=== PATIENT | female | born 1965 | race Caucasian/White ===

== ENCOUNTER → 2016-06-12 | Outpatient (CLI) | payer BC, OTHER | LOC: OPSV 14:57 | DX: G35 Multiple sclerosis (principal); Z88.8 Allergy status to other drugs, medicaments and biological substances | CPT/HCPCS: 96365; J2323; J7050; Q0163 ==

== ENCOUNTER → 2016-07-10 | Outpatient (CLI) | payer BC, OTHER ==
[~2016-07-10] VITALS: Ht 160 cm; Wt 63.5 kg
== END ==
LOC: OPSV 14:29
DX: G35 Multiple sclerosis (principal)
CPT/HCPCS: 96365; J2323; J7050; Q0163

== ENCOUNTER → 2016-07-24 | Outpatient (CLI) | payer BC | LOC: MRI 09:00 | DX: G35 Multiple sclerosis (principal); R90.89 Other abnormal findings on diagnostic imaging of central nervous system | CPT/HCPCS: 70551 ==

== ENCOUNTER → 2016-08-07 | Outpatient (CLI) | payer BC, OTHER ==
[~2016-08-07] VITALS: Ht 160 cm; Wt 63.5 kg
== END ==
LOC: OPSV 15:55
DX: G35 Multiple sclerosis (principal)
CPT/HCPCS: 96365; J2323; J7050; Q0163

== ENCOUNTER → 2016-09-06 | Outpatient (CLI) | payer BC ==
[~2016-09-06] VITALS: Ht 160 cm; Wt 63.5 kg
== END ==
LOC: OPSV 09-04 16:00
DX: G35 Multiple sclerosis (principal)
CPT/HCPCS: 96365; J2323; J7050; Q0163

== ENCOUNTER → 2020-05-12 | Outpatient (CLI) | payer BC ==
[~2020-05-12] VITALS: Ht 160 cm; Wt 63.5 kg
== END ==
LOC: OPSV 07:00
DX: G35 Multiple sclerosis (principal); E87.6 Hypokalemia
CPT/HCPCS: 36415; 84132; 96365; 96375; J2323; J2930

== ENCOUNTER → 2020-06-09 | Outpatient (CLI) | payer BC ==
[~2020-06-09] VITALS: Ht 160 cm; Wt 63.5 kg
[2020-06-09 13:36] LABS: HEMOGLOBIN 12.9 gm/dl (12.3-15.3); RED BLOOD COUNT 4.9 M/UL (4.00-5.10); WHITE BLOOD COUNT 12.5 K/UL (4.5-11.0)
[2020-06-19 18:11] LABS: JCV ANTIBODY Negative (.)
== END ==
LOC: OPSV 12:30
PROVIDERS: Nurse Practitioner
DX: G35 Multiple sclerosis (principal)
CPT/HCPCS: 80053; 85027; 96365; 96375; J2323; J2930

== ENCOUNTER → 2020-07-11 | Outpatient (CLI) | payer BC ==
[~2020-07-11] VITALS: Ht 160 cm; Wt 63.5 kg
== END ==
LOC: OPSV 12:00
DX: G35 Multiple sclerosis (principal)
CPT/HCPCS: 96365; 96375; J2323; J2930; Q0177

== ENCOUNTER → 2020-08-04 | Outpatient (CLI) | payer BC ==
[~2020-08-04] VITALS: Ht 160 cm; Wt 63.5 kg
== END ==
LOC: OPSV 11:56
DX: G35 Multiple sclerosis (principal)
CPT/HCPCS: 96365; 96375; J2323; J2930

== ENCOUNTER → 2020-08-18 | Outpatient (CLI) | payer BC | LOC: EMI 08:56 | DX: G35 Multiple sclerosis (principal) | CPT/HCPCS: 70551 ==

== ENCOUNTER → 2020-08-31 | Outpatient (CLI) | payer BC | LOC: OPSV 11:47 | DX: G35 Multiple sclerosis (principal) | CPT/HCPCS: 96365; 96375; J2323; J2930 ==

== ENCOUNTER → 2020-09-29 | Outpatient (CLI) | payer BC ==
[~2020-09-29] VITALS: Ht 160 cm; Wt 63.5 kg
[2020-09-29 10:50] LABS: HEMOGLOBIN 12.9 gm/dl (12.3-15.3); RED BLOOD COUNT 4.53 M/UL (4.00-5.10); WHITE BLOOD COUNT 10.6 K/UL (4.5-11.0)
[2020-10-11 07:11] LABS: JCV ANTIBODY Negative (.)
== END ==
LOC: OPSV 09-28 11:00
PROVIDERS: Nurse Practitioner
DX: G35 Multiple sclerosis (principal)
CPT/HCPCS: 36415; 80053; 85027; 96365; 96375; J2323; J2930

== ENCOUNTER → 2020-10-27 | Outpatient (CLI) | payer BC ==
[~2020-10-27] VITALS: Ht 160 cm; Wt 63.5 kg
[2020-10-27 13:03] LABS: HEMOGLOBIN 13.6 gm/dl (12.3-15.3); RED BLOOD COUNT 4.8 M/UL (4.00-5.10)
[2020-10-28 07:11] LABS: VITAMIN D, 25-HYDROXY 79.4 ng/mL (30.0-100.0)
[2020-11-03 18:09] LABS: JCV ANTIBODY Negative (.)
[2020-11-07 15:14] LABS: AMPHETAMINES, URINE Negative ng/mL (Cutoff=1000); BARBITURATE Negative ng/mL (Cutoff=200); BENZODIAZEPINES Negative ng/mL (Cutoff=200); CANNABINOIDS Negative ng/mL (Cutoff=20); COCAINE (METABOLITE) Negative ng/mL (Cutoff=300); CODEINE Negative (Cutoff=300); CREATININE 23.9 mg/dL (20.0-300.0); HYDROCODONE Negative (Cutoff=300); HYDROMORPHONE Positive (.); HYDROMORPHONE CONFIRM 351 ng/mL (Cutoff=300); MEPERIDINE Negative ng/mL (Cutoff=200); METHADONE Negative ng/mL (Cutoff=300); MORPHINE Negative (Cutoff=300); OPIATES Positive ng/mL (Cutoff=300); OPIATES See Final Results ng/mL (Cutoff=300); PHENCYCLIDINE Negative ng/mL (Cutoff=25); PROPOXYPHENE Negative ng/mL (Cutoff=300)
== END ==
LOC: OPSV 10:00
PROVIDERS: Nurse Practitioner
DX: G35 Multiple sclerosis (principal); R26.89 Other abnormalities of gait and mobility; R41.9 Unspecified symptoms and signs involving cognitive functions and awareness; E87.6 Hypokalemia; G25.81 Restless legs syndrome; E53.1 Pyridoxine deficiency; E55.9 Vitamin D deficiency, unspecified; Z79.899 Other long term (current) drug therapy
CPT/HCPCS: 36415; 80053; 80307; 82607; 82746; 84207; 84425; 84443; 85025; 96365; 96375; J2323; J2930

== ENCOUNTER → 2020-12-01 | Outpatient (CLI) | payer BC ==
[~2020-12-01] VITALS: Ht 160 cm; Wt 63.5 kg
== END ==
LOC: OPSV 11-24 12:00
DX: G35 Multiple sclerosis (principal)
CPT/HCPCS: 96365; 96375; J2323; J2930

== ENCOUNTER → 2021-01-01 | Outpatient (CLI) | payer BC ==
[~2021-01-01] VITALS: Ht 160 cm; Wt 63.5 kg
[2021-01-01 13:53] LABS: HEMOGLOBIN 11.8 gm/dl (12.3-15.3); RED BLOOD COUNT 4.43 M/UL (4.00-5.10); WHITE BLOOD COUNT 13.8 K/UL (4.5-11.0)
== END ==
LOC: OPSV 13:00
PROVIDERS: Nurse Practitioner
DX: G35 Multiple sclerosis (principal)
CPT/HCPCS: 36415; 80053; 85027; 96365; 96375; J2323; J2930

== ENCOUNTER → 2021-01-29 | Outpatient (CLI) | payer BC ==
[~2021-01-29] VITALS: Ht 160 cm; Wt 63.5 kg
== END ==
LOC: OPSV 13:00
DX: G35 Multiple sclerosis (principal)
CPT/HCPCS: 96365; 96375; J2323; J2930

== ENCOUNTER → 2021-03-06 | Outpatient (CLI) | payer BC ==
[~2021-03-06] VITALS: Ht 160 cm; Wt 63.5 kg
== END ==
LOC: OPSV 02-26 13:00
DX: G35 Multiple sclerosis (principal)
CPT/HCPCS: 96365; 96375; J2323; J2930

== ENCOUNTER → 2021-04-03 | Outpatient (CLI) | payer BC ==
[~2021-04-03] VITALS: Ht 160 cm; Wt 63.5 kg
[2021-04-03 13:23] LABS: HEMOGLOBIN 13.3 gm/dl (12.3-15.3); RED BLOOD COUNT 4.65 M/UL (4.00-5.10); WHITE BLOOD COUNT 15.3 K/UL (4.5-11.0)
== END ==
LOC: OPSV 12:00
PROVIDERS: Nurse Practitioner
DX: G35 Multiple sclerosis (principal)
CPT/HCPCS: 36415; 80053; 85027; 96365; 96375; J2323; J2930

== ENCOUNTER → 2021-05-01 | Outpatient (CLI) | payer BC ==
[~2021-05-01] VITALS: Ht 160 cm; Wt 63.5 kg
== END ==
LOC: OPSV 12:00
DX: G35 Multiple sclerosis (principal)
CPT/HCPCS: 96365; 96375; J2323; J2930

== ENCOUNTER → 2021-06-13 | Outpatient (CLI) | payer BC ==
[~2021-06-13] VITALS: Ht 160 cm; Wt 63.5 kg
[2021-06-13 13:05] LABS: HEMOGLOBIN 10.3 gm/dl (12.3-15.3); RED BLOOD COUNT 3.61 M/UL (4.00-5.10); WHITE BLOOD COUNT 13.9 K/UL (4.5-11.0)
== END ==
LOC: OPSV 12:00
PROVIDERS: Nurse Practitioner
DX: G35 Multiple sclerosis (principal)
CPT/HCPCS: 80053; 85027; 96365; 96375; J2323; J2930

== ENCOUNTER → 2021-08-02 | Outpatient (CLI) | payer BC | LOC: KOH-I 13:00 | DX: G35 Multiple sclerosis (principal); M47.812 Spondylosis without myelopathy or radiculopathy, cervical region | CPT/HCPCS: 70551; 72141 ==

== ENCOUNTER → 2021-08-10 | Outpatient (CLI) | payer BC ==
[~2021-08-10] VITALS: Ht 160 cm; Wt 63.5 kg
== END ==
LOC: OPSV 08-08 12:00
DX: G35 Multiple sclerosis (principal)
CPT/HCPCS: 96365; 96375; J2323; J2930

== ENCOUNTER 2021-08-25 01:49 | Inpatient (IN) | payer MEDICARE, BC ==
[~2021-08-25] VITALS: Ht 160 cm; Wt 54.4 kg
[2021-08-25 02:45] LABS: RED BLOOD COUNT 5.22 M/UL (4.00-5.10); WHITE BLOOD COUNT 17.2 K/UL (4.5-11.0)
[2021-08-25] MEDS ORDERED: POTASSIUM CHLO20 ME1 PO (10:16)
[2021-08-25] MEDS ORDERED: AMLODIPINE BESYL5 MG PO (10:17)
[2021-08-25] MEDS ORDERED: HYDROCODON-ACE1 EAC6 PO (10:17)
[2021-08-25] MEDS ORDERED: HYDROCHLOROTH12.5 MG PO (10:18)
[2021-08-25] MEDS ORDERED: GABAPENTIN300 MG PO (10:19)
[2021-08-25] MEDS ORDERED: LEXAPRO10 MG PO (10:25)
[2021-08-25] MEDS ORDERED: METHYLPHENIDATE10 M1 PO (10:25)
[2021-08-25] MEDS ORDERED: VITAMIN B-6100 MG PO (10:26)
[2021-08-25] MEDS ORDERED: CYCLOBENZAPRINE10 MG PO (10:27)
[2021-08-25] MEDS ORDERED: ROPINIROLE HCL0.5 MG PO (10:27)
[2021-08-25] MEDS ORDERED: VITAMIN D325 MCG PO (10:28)
[2021-08-26 02:34] LABS: HEMOGLOBIN 11.5 gm/dl (12.3-15.3); RED BLOOD COUNT 4.14 M/UL (4.00-5.10)
[2021-08-26] MEDS ORDERED: AUGMENTIN 500-500 MG PO (12:02)
== END 2021-08-26 16:19 | disposition home or self-care (01) | DRG 872 ==
LOC: ER1 01:49 → CDU 05:54 → M/S 09:18
PROVIDERS: Family Medicine; ADMIT Internal Medicine
DX: A41.9 Sepsis, unspecified organism (principal); K81.0 Acute cholecystitis; G35 Multiple sclerosis; F17.210 Nicotine dependence, cigarettes, uncomplicated; Z20.822 Contact with and (suspected) exposure to COVID-19; I12.9 Hypertensive chronic kidney disease with stage 1 through stage 4 chronic kidney disease, or unspecified chronic kidney disease; N18.30 Chronic kidney disease, stage 3 unspecified; R33.9 Retention of urine, unspecified; N31.9 Neuromuscular dysfunction of bladder, unspecified; Z87.440 Personal history of urinary (tract) infections; Z98.890 Other specified postprocedural states
CPT/HCPCS: 36415; 76705; 80048; 80053; 81001; 83605; 83690; 85025; 87040; 87077; 87086; 87186; 99285; J1650; J2543

== ENCOUNTER 2021-09-04 16:14 | Inpatient (IN) | payer MEDICARE, BC ==
[~2021-09-04] VITALS: Ht 160 cm; Wt 54.4 kg
[~2021-09-04 16:14] MED LIST: AMLODIPINE BESYL5 MG PO; AUGMENTIN 500-500 MG PO; CYCLOBENZAPRINE10 MG PO; GABAPENTIN300 MG PO; HYDROCHLOROTH12.5 MG PO; HYDROCODON-ACE1 EAC6 PO; LEXAPRO10 MG PO; METHYLPHENIDATE10 M1 PO; POTASSIUM CHLO20 ME1 PO; ROPINIROLE HCL0.5 MG PO; VITAMIN B-6100 MG PO; VITAMIN D3125 MCG PO
[2021-09-04 17:36] LABS: HEMOGLOBIN 11.3 gm/dl (12.3-15.3); RED BLOOD COUNT 4.02 M/UL (4.00-5.10)
[2021-09-04 17:55] LABS: WHITE BLOOD COUNT 29.5 K/UL (4.5-11.0)
[2021-09-05 04:25] LABS: HEMOGLOBIN 10.9 gm/dl (12.3-15.3); RED BLOOD COUNT 3.93 M/UL (4.00-5.10)
[2021-09-05 04:52] LABS: WHITE BLOOD COUNT 56.9 K/UL (4.5-11.0)
[2021-09-05 05:02] LABS: BUN/CREATININE RATIO 25 (0-10)
[2021-09-06 06:24] LABS: HEMOGLOBIN 10.2 gm/dl (12.3-15.3); RED BLOOD COUNT 3.7 M/UL (4.00-5.10)
[2021-09-06 06:43] LABS: WHITE BLOOD COUNT 41.7 K/UL (4.5-11.0)
[2021-09-06 06:45] LABS: BUN/CREATININE RATIO 24 (0-10)
[2021-09-07 04:57] LABS: HEMOGLOBIN 8.8 gm/dl (12.3-15.3)
[2021-09-07 05:26] LABS: RED BLOOD COUNT 3.2 M/UL (4.00-5.10); WHITE BLOOD COUNT 29.8 K/UL (4.5-11.0)
[2021-09-07 05:28] LABS: BUN/CREATININE RATIO 19 (0-10)
--- NOTE | 2021-09-07 14:44 | NUR ---
PATIENT RECEIVED FROM PACU, NO ACUTE DISTRESS, VSS, ALERT AND DROWSY, EASILY FALLS ASLEEP AFTER ASSESSMENT. SHE HAS 4 ABD INCISIONS CLOSED WITH DERMABOND AND A ODALYS DRAIN WITH TRANSPORE TAPE.
[2021-09-08 06:37] LABS: HEMOGLOBIN 8.6 gm/dl (12.3-15.3); RED BLOOD COUNT 3.27 M/UL (4.00-5.10)
[2021-09-08] MEDS ORDERED: PERCOCET 5-3251 EACH PO (06:48)
[2021-09-08 06:55] LABS: BUN/CREATININE RATIO 20 (0-10)
[2021-09-08 07:00] LABS: WHITE BLOOD COUNT 30.7 K/UL (4.5-11.0)
[2021-09-09 08:01] LABS: HEMOGLOBIN 8.1 gm/dl (12.3-15.3); RED BLOOD COUNT 3.12 M/UL (4.00-5.10)
[2021-09-09 08:02] LABS: BUN/CREATININE RATIO 19 (0-10)
[2021-09-10 06:45] LABS: HEMOGLOBIN 9.1 gm/dl (12.3-15.3); RED BLOOD COUNT 3.34 M/UL (4.00-5.10); WHITE BLOOD COUNT 22.4 K/UL (4.5-11.0)
[2021-09-10 07:12] LABS: BUN/CREATININE RATIO 22 (0-10)
[2021-09-10] MEDS ORDERED: AMOX TR-K CLV1 EAC4 PO (11:12)
--- NOTE | 2021-09-10 11:49 | NUR ---
PTS ODALYS DRAIN PULLED WITH APPROX 8CC OF BLOODY DRAINAGE. STITCH REMOVED, DRAINED PULLED, BANDAID APPLIED. MINIMAL BLEEDING AT SITE. PT. TIMOTEO. WELL
[2021-09-11 17:34] LABS: WHITE BLOOD COUNT 22.5 K/UL (4.5-11.0)
== END 2021-09-10 13:47 | disposition home or self-care (01) | DRG 853 ==
LOC: ER1 16:14 → MED SURG 4 20:08 → CDU 20:08 → MED SURG 4 20:08
PROVIDERS: Internal Medicine; Physician Assistant; Surgery; ADMIT Internal Medicine
PROC: 0FT44ZZ Resection of Gallbladder, Percutaneous Endoscopic Approach (ICD-10-PCS; principal; 2021-09-07 13:30)
DX: A41.9 Sepsis, unspecified organism (principal); K68.19 Other retroperitoneal abscess; K81.0 Acute cholecystitis; Z20.822 Contact with and (suspected) exposure to COVID-19; D84.9 Immunodeficiency, unspecified; E87.1 Hypo-osmolality and hyponatremia; G35 Multiple sclerosis; D64.9 Anemia, unspecified; I12.9 Hypertensive chronic kidney disease with stage 1 through stage 4 chronic kidney disease, or unspecified chronic kidney disease; N18.9 Chronic kidney disease, unspecified; N31.9 Neuromuscular dysfunction of bladder, unspecified; I10 Essential (primary) hypertension; F17.210 Nicotine dependence, cigarettes, uncomplicated; K82.A1 Gangrene of gallbladder in cholecystitis; Z87.440 Personal history of urinary (tract) infections; Z98.890 Other specified postprocedural states; Z88.8 Allergy status to other drugs, medicaments and biological substances
CPT/HCPCS: 36415; 80048; 80053; 80202; 81001; 83605; 83690; 83735; 84100; 85025; 87040; 87086; 96365; 96366; 96367; 96368; 96372; 96375; 96376; 99285; C1729; C9113; G0378; J0696; J1100; J1650; J1885; J1940; J2001; J2185; J2250; J2270; J2370; J2405; J2543; J2704; J2710; J3010; J3370; J7030; J7050; J7070; J7120; Q9967

== ENCOUNTER → 2021-09-25 | Outpatient (CLI) | payer BC ==
[~2021-09-25] VITALS: Ht 160 cm; Wt 63.5 kg
[~2021-09-25] MED LIST changes: +AMOX TR-K CLV1 EAC4 PO; +PERCOCET 5-3251 EACH PO
[2021-09-25 11:36] LABS: HEMOGLOBIN 9.9 gm/dl (12.3-15.3); RED BLOOD COUNT 3.57 M/UL (4.00-5.10); WHITE BLOOD COUNT 9.4 K/UL (4.5-11.0)
== END ==
LOC: OPSV 11:00
PROVIDERS: Nurse Practitioner
DX: G35 Multiple sclerosis (principal)
CPT/HCPCS: 80053; 85027; 96365; 96375; J2323; J2930

== ENCOUNTER → 2021-10-26 | Outpatient (CLI) | payer BC ==
[~2021-10-26] VITALS: Ht 160 cm; Wt 63.5 kg
== END ==
LOC: OPSV 12:00
DX: G35 Multiple sclerosis (principal)
CPT/HCPCS: 96365; 96375; J2323; J2930

== ENCOUNTER → 2021-11-23 | Outpatient (CLI) | payer BC | LOC: OPSV 13:00 | DX: G35 Multiple sclerosis (principal) | CPT/HCPCS: 96365; 96375; J2323; J2930 ==

== ENCOUNTER → 2021-12-21 | Outpatient (CLI) | payer BC ==
[~2021-12-21] VITALS: Ht 160 cm; Wt 63.5 kg
[2021-12-21 13:47] LABS: HEMOGLOBIN 12.9 gm/dl (12.3-15.3); RED BLOOD COUNT 4.73 M/UL (4.00-5.10); WHITE BLOOD COUNT 12.1 K/UL (4.5-11.0)
== END ==
LOC: OPSV 13:00
PROVIDERS: Nurse Practitioner
DX: G35 Multiple sclerosis (principal)
CPT/HCPCS: 80053; 85027; 96365; 96375; J2323; J2930